=== PATIENT | female | born 1985 | race Hispanic/Latino ===

== ENCOUNTER 2018-03-27 22:39 | Emergency (ER) | payer OTHER ==
[2018-03-27] MEDS ORDERED: Acetaminophen 500 MG TAB ONE (23:48)
--- NOTE | 2018-03-28 07:54 | CT ---
CT OF FACIAL BONES NONCONTRAST: INDICATION: Left periorbital edema, injury. FINDINGS: There is mild irregularity of the floor of the left orbit. Dehiscence of the medial wall left orbit is present. There is minimal inferior extraconal fat stranding on the left. No significant extracon al fat stranding adjacent the dehiscent medial wall. These findings could relate to minimally displa deepak acute or possibly chronic abnormalities given the absence of a significant degree of inflammation . Recommend clinical correlation to discern for the presence of pain of the left orbital rodrigez. The re is mild bilateral nasal bone deformity compatible with fracture. There is embedded radiopaque for eign body of the right lateral periorbital soft tissues. Correlate with physical exam. There is no retrobulbar hematoma or mass effect. Intraocular lenses are maintained bilaterally. No evidence of acute fracture of the right maxillary sinus. The roof of the left maxillary sinus is irregular, rela joby to the above-described findings at the floor of the left orbit. There is no acute fluid level of the imaged paranasal sinuses. IMPRESSION: 1. Mild osseous irregularity at the floor and medial wall of the left orbit as discussed above. Rec ommend clinical correlation. There is no significant retrobulbar hematoma or mass effect. 2. Bilateral nasal bone deformities. 3. Soft tissue contusion of the anterior left buccal region. POS: [facility]
== END 2018-03-28 00:32 | disposition left against medical advice (07) ==
LOC: MADERS 22:39
DX: O9A.312 Physical abuse complicating pregnancy, second trimester (principal); S02.2XXA Fracture of nasal bones, initial encounter for closed fracture; S02.32XA Fracture of orbital floor, left side, initial encounter for closed fracture; Z3A.21 21 weeks gestation of pregnancy; Y04.2XXA Assault by strike against or bumped into by another person, initial encounter
CPT/HCPCS: 70486